=== PATIENT | female | born 1990 | race Caucasian/White ===

== ENCOUNTER → 2020-04-21 | Outpatient (CLI) | payer OTHER ==
[~2020-04-21] MED LIST: CONTRAST GIVEN. MC PRN; GADOTERATE 5 MMOL/10ML VIAL. IVP ONE; IOHEXOL 300 MG/ML 100ML VIAL. IJ ONE
--- NOTE | 2020-04-21 10:10 | RAD ---
EXAM: Fluoroscopically guided right hip injection for MR arthrography. HISTORY: 29-year-old woman with right hip pain referred for MR arthrography.. TECHNIQUE: The risks and benefits of the procedure were discussed with the patient and written and verbal consent were obtained. A time out procedure was performed. Fluoroscopic imaging of the right hip was performed. The overlying skin was sterilely prepped and infiltrated with 1% lidocaine for local anesthesia. A 22-gauge spinal needle was then advanced into the joint space under fluoroscopic guidance. Intra-articular positioning positioning was confirmed with a small injection of iodinated contrast. 12 mL of 1:200 dilution gadolinium contrast with saline and iodinated contrast was injected under fluoroscopic control. Instrumentation was withdrawn and a sterile dressing placed. There were no immediate complications. The patient was transferred to the MR suite for additional imaging. Fluoroscopy time 0.4 minutes . 5 images were obtained. Refer to the MR report for additional detail. IMPRESSION: Successful fluoroscopically guided right hip injection for MR arthrography. Please refer to the separate MR report for additional detail. Electronically signed by: Tessy Rae MD (04/21/2020 10:08 AM) [id number]
--- NOTE | 2020-04-21 15:27 | RAD ---
MRI arthrogram of the right hip HISTORY: Snapping hip. Iliopsoas bursitis. Labral tear. TECHNIQUE: Routine multiplanar sequences are obtained. FINDINGS: Mild marrow edema within the right inferior pubic ramus. No evidence of a clear-cut fracture line. No evidence of aggressive bone destruction. No evidence of femoral head osteonecrosis. Mild contrast signal within the and anterior labrum, sagittal series 7, image 10 and 11 suspicious for mild tearing. This may be of degenerative etiology. Articular cartilage is intact. Gluteus minimus minimus and medius tendons are intact. Hamstring tendon attachment intact. Iliopsoas tendon insertion intact. No significant fluid accumulation within the iliopsoas bursa. Rectus femoris tendon attachment is intact. Limited visualization of the right adnexa demonstrates a cystic appearing lesion, which measures 3.6 cm, most likely an ovarian cyst. IMPRESSION: 1. Findings are suspicious for a small degenerative tear of the anterior labrum. 2. 3.6 cm cystic lesion in the right adnexa, most likely an ovarian cyst. Pelvic ultrasound could confirm and further characterize. Electronically signed by: Gustavo Mathews MD (04/21/2020 3:24 PM) [id number]
== END | disposition home or self-care (01) ==
LOC: RAD 08:21
PROVIDERS: ATTEND Physician Assistant
DX: S73.191A Other sprain of right hip, initial encounter (principal); M70.71 Other bursitis of hip, right hip; M24.851 Other specific joint derangements of right hip, not elsewhere classified; Z88.5 Allergy status to narcotic agent
CPT/HCPCS: 20610; 73525; 73722; A9575; Q9967